=== PATIENT | female | born 1995 | race Caucasian/White ===

== ENCOUNTER 2018-10-11 11:59 | Emergency (ER) | payer OTHER ==
[~2018-10-11] VITALS: Ht 170.2 cm; Wt 78.0 kg
[2018-10-11 12:10] VITALS: Ht 170.2 cm; Wt 78.0 kg
[2018-10-11 12:56] VITALS: BP 112/72
== END 2018-10-11 13:09 | disposition home or self-care (01) ==
LOC: ED 11:59
DX: J01.90 Acute sinusitis, unspecified (principal)
CPT/HCPCS: Q0162